=== PATIENT | male | born 1960 | race Caucasian/White ===

== ENCOUNTER 2018-02-06 09:01 | Emergency (ER) | payer SELFPAY ==
[~2018-02-06] VITALS: Ht 190.5 cm; Wt 90.0 kg
[~2018-02-06 09:01] MED LIST: AMOXICILLIN500 MG PO; BACLOFEN10 MG PO; BACTROBAN2 % EX; CIPRO500 MG OR; FLEXERIL PO; FLEXERIL5 M1 PO; HYDROCO/APAP1 TA8 OR; LORTAB 1010 MG PO; LORTAB 5 OR; MEGACE ES; MEGACE PO; NAPROSYN500 MG OR; NAPROSYN500 MG PO; NITROGLYCER0.4 MG SL; NO; NO HOME MEDS; PERCOCET 5/325M1 TAB OR; PROAIR HFA IN; TRAMADOL HCL50 MG OR; TRAMADOL HCL50 MG PO; ULTRAM ER100 MG PO; ULTRAM50 M1 PO; VENTOLIN HF1 IN; VENTOLIN HFA IN
[2018-02-06 09:54] LABS: HEMATOCRIT 39.3 % (39.0-50.0); HEMOGLOBIN 12.8 g/dl (14.0-18.0); IMMATURE GRANULOCYTES 0.5 % (0.0-1.0); MEAN CELL VOLUME 92.9 fL CALC (80.0-100.0); MEAN CORPUSCULAR HGB 30.3 pG CALC (26.0-32.0); MEAN CORPUSCULAR HGB CONC 32.6 g/L CALC (32.0-36.0); NEUT# 7.9 thou/uL (1.82-7.42); RED BLOOD COUNT 4.23 mill/uL (4.70-6.10); RED CELL DISTRI WIDTH 14.9 % (11.5-15.5)
[2018-02-06 10:08] LABS: ALBUMIN 2.7 g/dL (3.2-5.0); ALKALINE PHOSPHATASE 101 u/l (38-126); ANION GAP 10 (6-22 (CALC)); BILIRUBIN, TOTAL 0.3 mg/dL (0.0-1.4); BUN 16 mg/dL (9-20); BUN/CREATININE RATIO 24 (12-20 (CALC)); CARBON DIOXIDE 28 mmol/l (22-30); CHLORIDE 101 mmol/l (95-108); CREATININE 0.7 mg/dL (0.7-1.3); GFR > 60 ML/MIN (>=60 (CALC)); GFR FOR AFR.AMER. > 60 ML/MIN (>=60 (CALC)); LIPASE 31 u/l (23-300); POTASSIUM 4.4 mmol/l (3.5-5.1); SGOT/AST 15 u/l (17-59); SGPT/ALT 20 u/l (21-72); SODIUM 135 mmol/l (137-146); TOTAL PROTEIN 5.5 g/dL (6.3-8.2)
[2018-02-06 11:17] LABS: URINE BILIRUBIN - DIPSTICK NEGATIVE (NEGATIVE); URINE BLOOD DIPSTICK NEGATIVE (NEGATIVE); URINE COLOR YELLOW; URINE GLUCOSE - DIPSTICK NEGATIVE (NEGATIVE); URINE KETONE NEGATIVE (NEGATIVE); URINE LEUK ESTERASE NEGATIVE (NEGATIVE); URINE NITRITE - DIPSTICK NEGATIVE (Negative); URINE PH 5.5 (4.5-8.0); URINE PROTEIN - DIPSTICK NEGATIVE (NEG-TRACE); URINE SPECIFIC GRAVITY 1.025; URINE UROBILINOGEN - DIPSTICK 0.2 E.U./dL (0.2)
[2018-02-06 11:19] LABS: URINE CLARITY CLEAR
[2018-02-06 11:57] VITALS: BP 113/82
== END 2018-02-06 11:58 | disposition short-term general hospital (02) | DRG 437 ==
LOC: ED 09:01
PROVIDERS: Family Medicine
DX: C78.7 Secondary malignant neoplasm of liver and intrahepatic bile duct (principal); K86.9 Disease of pancreas, unspecified; R10.11 Right upper quadrant pain; R11.2 Nausea with vomiting, unspecified; F17.210 Nicotine dependence, cigarettes, uncomplicated
CPT/HCPCS: Q9967

== ENCOUNTER 2018-02-26 09:23 | Emergency (ER) | payer OTHER ==
[~2018-02-26] VITALS: Ht 190.5 cm; Wt 60.5 kg
[2018-02-26 10:02] LABS: HEMATOCRIT 34.5 % (39.0-50.0); HEMOGLOBIN 11.6 g/dl (14.0-18.0); IMMATURE GRANULOCYTES 0.6 % (0.0-5.0); MEAN CELL VOLUME 90.8 fL CALC (80.0-100.0); MEAN CORPUSCULAR HGB 30.5 pG CALC (26.0-32.0); MEAN CORPUSCULAR HGB CONC 33.6 g/L CALC (32.0-36.0); NEUT# 13.11 thou/uL (1.82-7.42); RED BLOOD COUNT 3.8 mill/uL (4.70-6.10); RED CELL DISTRI WIDTH 15.2 % (11.5-15.5)
[2018-02-26 10:07] LABS: ALBUMIN 2.9 g/dL (3.2-5.0); ALKALINE PHOSPHATASE 137 u/l (38-126); ANION GAP 13 (6-22 (CALC)); BILIRUBIN, TOTAL 0.4 mg/dL (0.0-1.4); BUN 19 mg/dL (9-20); BUN/CREATININE RATIO 27 (12-20 (CALC)); CARBON DIOXIDE 28 mmol/l (22-30); CHLORIDE 96 mmol/l (95-108); CREATININE 0.7 mg/dL (0.7-1.3); GFR > 60 ML/MIN (>=60 (CALC)); GFR FOR AFR.AMER. > 60 ML/MIN (>=60 (CALC)); LIPASE 33 u/l (23-300); POTASSIUM 4.4 mmol/l (3.5-5.1); SGOT/AST 18 u/l (17-59); SGPT/ALT 23 u/l (21-72); SODIUM 132 mmol/l (137-146)
[2018-02-26 14:03] VITALS: BP 99/68
== END 2018-02-26 14:10 | disposition left against medical advice (07) ==
LOC: ED 09:23
PROVIDERS: Family Medicine
DX: R11.2 Nausea with vomiting, unspecified (principal); C25.2 Malignant neoplasm of tail of pancreas; C78.7 Secondary malignant neoplasm of liver and intrahepatic bile duct; J44.9 Chronic obstructive pulmonary disease, unspecified; F17.210 Nicotine dependence, cigarettes, uncomplicated; Z91.19 Patient's noncompliance with other medical treatment and regimen
CPT/HCPCS: Q9967

== ENCOUNTER 2018-02-28 10:52 | Emergency (ER) | payer OTHER ==
[~2018-02-28] VITALS: Ht 190.5 cm; Wt 60.0 kg
[2018-02-28] MEDS ORDERED: PERCOCET 10/31 COMBO PO ×2 (11:45→11:54)
[2018-02-28 12:55] VITALS: BP 122/75
== END 2018-02-28 12:55 | disposition home or self-care (01) ==
LOC: ED 10:52
DX: G89.29 Other chronic pain (principal); R10.11 Right upper quadrant pain; F17.210 Nicotine dependence, cigarettes, uncomplicated; C25.9 Malignant neoplasm of pancreas, unspecified; Z76.0 Encounter for issue of repeat prescription